=== PATIENT | female | born 1990 | race Caucasian/White ===

== ENCOUNTER 2017-12-16 17:20 | Emergency (ER) | payer MEDICAID, OTHER ==
[~2017-12-16] VITALS: Ht 154.9 cm; Wt 119.4 kg
[~2017-12-16 17:20] MED LIST: IBUP-974 PO; PREN-385 PO
[2017-12-16 17:30] VITALS: BP 149/86
[2017-12-16 18:40] LABS: BASOPHILS # (AUTO) 0.3 K/uL (0.00-0.22); HEMATOCRIT 44.9 % (36-48); HEMOGLOBIN 14.9 g/dL (12.0-16.0); LYMPHOCYTES # (AUTO) 2.4 K/uL (2.5-16.5); MEAN CORPUSCULAR HEMOGLOBIN 27 pg (27-31); MEAN CORPUSCULAR HGB CONC 33 g/dL (33-37); MEAN CORPUSCULAR VOLUME 81 fL (80-94); MONOCYTES # (AUTO) 0.4 K/uL (0.8-1.0); NEUTROPHILS # (AUTO) 3.3 K/uL (1.8-7.7); PLATELET COUNT (AUTO) 220 K/uL (140-450); RED BLOOD CELL COUNT(AUTO) 5.57 MIL/uL (4.20-5.40); RED CELL DISTRIBUTION WIDTH 12.8 % (11.6-13.7); WHITE BLOOD COUNT (AUTO) 6.4 K/uL (4.8-10.8)
--- NOTE | 2017-12-16 18:40 | NUR ---
PATIENT TO ER BED 12
[2017-12-16] MEDS ORDERED: NACL 0.9% 1,000 ML IV SCH (18:48)
[2017-12-16] MEDS ORDERED: ONDANSETRON 4 MG/2 ML VIAL IVP ONE (18:50)
[2017-12-16] MEDS ORDERED: MORPHINE SULFATE 2 MG/ML SYR IVP ONE (18:50)
[2017-12-16] MEDS ORDERED: KETOROLAC 30 MG/ML VIAL IVP ONE (18:50)
--- NOTE | 2017-12-16 18:50 | NUR ---
27/F C/O HEADACHE, COUGH & NAUSEA, VOMITING,DIARRHEA, FEVER, COUGH X3D.SKIN IS PINK/WARM/DRY; AAOX4 WITH EVEN AND STEADY GAIT; LUNGS CLEAR BL; PATIENT STATES PAIN OF 8/10 AT THIS TIME; PATIENT POSITIONED FOR COMFORT; HOB ELEVATED; BEDRAILS UP X2; BED DOWN. ER MD MADE AWARE OF PT STATUS.
--- NOTE | 2017-12-16 19:10 | NUR ---
Pt report given to KAREN SOLIZ. Transfer of care at this time.
[2017-12-16 19:12] LABS: ALBUMIN 3.8 g/dL (3.4-5.0); ANION GAP 13.8 (8-16); CARBON DIOXIDE 28.4 mmol/L (21-32); CREATININE 0.7 mg/dL (0.6-1.3); POTASSIUM 3.2 mmol/L (3.5-5.1); TOTAL BILIRUBIN 0.4 mg/dL (0.0-1.0)
[2017-12-16] MEDS ORDERED: POTASSIUM CHLORIDE 20% 40 MEQ/15 ML UDC PO ONE (19:30)
[2017-12-16 21:18] VITALS: BP 149/86
--- NOTE | 2017-12-16 21:18 | NUR ---
Patient discharged with v/s stable. Written and verbal after care instructions given and explained. Patient alert, oriented and verbalized understanding of instructions. Ambulatory with steady gait. All questions addressed prior to discharge. ID band removed. Patient advised to follow up with PMD. Rx of MANJU ANGEL given. Patient educated on indication of medication including possible reaction and side effects. Opportunity to ask questions provided and answered.
== END 2017-12-16 21:18 | disposition home or self-care (01) ==
LOC: MED 17:20
DX: A08.4 Viral intestinal infection, unspecified (principal); J06.9 Acute upper respiratory infection, unspecified
CPT/HCPCS: 36415; 80053; 82150; 83690; 84703; 85025; 96361; 96374; 96375; 99284; J1885; J2270; J2405; J7030

== ENCOUNTER 2018-10-13 15:21 | Emergency (ER) | payer OTHER ==
[~2018-10-13] VITALS: Ht 154.9 cm; Wt 126.3 kg
[2018-10-13 15:30] VITALS: BP 134/82
[2018-10-13 16:32] VITALS: BP 128/85
== END 2018-10-13 16:32 | disposition home or self-care (01) ==
LOC: MED 15:21
DX: H66.91 Otitis media, unspecified, right ear (principal); H60.91 Unspecified otitis externa, right ear; Z90.49 Acquired absence of other specified parts of digestive tract
CPT/HCPCS: 99283

== ENCOUNTER 2019-04-27 16:52 | Emergency (ER) | payer OTHER ==
[~2019-04-27] VITALS: Ht 154.9 cm; Wt 111.4 kg
[2019-04-27 17:13] VITALS: BP 115/81
--- NOTE | 2019-04-27 19:26 | NUR ---
PT TAKEN TO CHAIR Katarina.
--- NOTE | 2019-04-27 19:30 | NUR ---
29/M C/O SORE THRAOT X1 WEEK, WITH RT EAR PAIN STARTING ON SATURDAY. PT REPORTS FEVER ON AND OFF, DENIES ANY N/V/D. DENIES CHEST PAIN OR SOB.
--- NOTE | 2019-04-27 20:11 | NUR ---
BIJU GILBERT EVALUATING PT IN CHAIR C.
--- NOTE | 2019-04-27 20:25 | NUR ---
Patient discharged with v/s stable. Written and verbal after care instructions given and explained. Patient alert, oriented and verbalized understanding of instructions. Ambulatory with steady gait. All questions addressed prior to discharge. ID band removed. Patient advised to follow up with PMD. Rx of Amoxcillin and Ibuprofen given. Patient educated on indication of medication including possible reaction and side effects. Opportunity to ask questions provided and answered.
[2019-04-27 20:26] VITALS: BP 148/101
== END 2019-04-27 20:25 | disposition home or self-care (01) ==
LOC: MED 16:52
DX: H66.93 Otitis media, unspecified, bilateral (principal); J06.9 Acute upper respiratory infection, unspecified; Z79.1 Long term (current) use of non-steroidal anti-inflammatories (NSAID); Z79.899 Other long term (current) drug therapy; Z88.8 Allergy status to other drugs, medicaments and biological substances
CPT/HCPCS: 99283

== ENCOUNTER 2022-07-10 16:13 | Emergency (ER) | payer OTHER ==
[~2022-07-10] VITALS: Ht 154.9 cm; Wt 127.9 kg
[2022-07-10 16:19] VITALS: BP 139/95
--- NOTE | 2022-07-10 16:30 | NUR ---
32 Y/O FEMALE BIB SELF C/O OF LOW BACK PAIN, N/V/D/COUGH X3DAYS, TESTED HOME TEST FOR COVID 07/07/22, AND IT WAS NEGATIVE ALLERGY: JUAN ANTONIO PMH: DENIES
--- NOTE | 2022-07-10 17:14 | NUR ---
JUANJOSE JUAN AT PT SIDE FOR EVAL
[2022-07-10] MEDS ORDERED: BENZ100C6 PO (17:17)
[2022-07-10] MEDS ORDERED: NAPR-1704 PO (17:17)
[2022-07-10] MEDS: KETOROLAC 30 MG/ML VIAL IM ONE (17:25)
--- NOTE | 2022-07-10 17:33 | NUR ---
Patient discharged with v/s stable. Written and verbal after care instructions given and explained. Patient alert, oriented and verbalized understanding of instructions. Ambulatory with steady gait. All questions addressed prior to discharge. ID band removed. Patient advised to follow up with PMD. Rx of BENZONATATE, NAPROXEN given. Patient educated on indication of medication including possible reaction and side effects. Opportunity to ask questions provided and answered.
== END 2022-07-10 17:33 | disposition home or self-care (01) ==
LOC: MED 16:13
DX: M94.0 Chondrocostal junction syndrome [Tietze] (principal); Z20.822 Contact with and (suspected) exposure to COVID-19; J06.9 Acute upper respiratory infection, unspecified; Z90.49 Acquired absence of other specified parts of digestive tract; Z79.899 Other long term (current) drug therapy; Z88.8 Allergy status to other drugs, medicaments and biological substances
CPT/HCPCS: 87426; 96372; 99283; J1885